=== PATIENT | female | born 1945 | race Caucasian/White ===

== ENCOUNTER 2022-05-28 04:27 | Observation (INO) ==
[2022-05-28] MEDS ORDERED: STAT IV STA (13:11)
[2022-05-28] MEDS ORDERED: ACETAMINOPHEN 325 MG TAB PO PRN (13:11)
[2022-05-28] MEDS ORDERED: ONDANSETRON INJ 2 MG/ML 2 ML VIAL IV PRN (13:11)
[2022-05-28] MEDS ORDERED: LACTATED RINGER'S 1,000 ML IV SCH (13:15)
[2022-05-28] MEDS ORDERED: SODIUM CHLORIDE 0.9% 250 ML IV PRN (13:20)
--- NOTE | 2022-05-28 13:24 | History & Physical Report ---
Date of Service May 28, 2022 Assessment & Plan (1) Acute blood loss anemia: Plan: Presents with hematemesis, melena, in the setting of taking aspirin and Eliquis Most likely upper GI bleed CT abdomen/pelvis at outside hospital done without contrast due to chronic kidn ey disease shows "cannot exclude low-grade diverticulitis"-doubtful this is a lower GI bleed Likely with underlying chronic anemia due to CKD stage IV, but unknown baseline hemoglobin Hemoglobin initially 9.2 on arrival and then down to 8.1 at outside hospital No further hematemesis or melena since 6:30 PM on 05/27, is hemodynamically stable here -Admit to telemetry -Type and crossmatch 2 units of blood but hold transfusion unless hemoglobin less than 8.0 and/or hemodynamically unstable-keeping in mind her EF of 10-15%, would transfuse cautiously and give IV Lasix -Trend serial CBC -Check iron studies and give IV Venofer if no blood transfusion needed -Consult GI-discussed case with GI who plans on EGD on 05/29 if cleared to do so from anesthesia standpoint -Continue Protonix and octreotide drips started at outside hospital as recommended by GI -Hold aspirin and Eliquis -Treat empirically with IV Zosyn in case of coexisting diverticulitis -Keep n.p.o. except ice chips and sips with meds (2) GI bleed: Plan: Upper GI bleed As above (3) HFrEF (heart failure with reduced ejection fraction): Plan: Patient has known chronic HFrEF with EF 10-15% Follows with Dr. Gongora in the [facility] area Hold Lasix for today in case of hypotension from blood loss, but certainly would give IV Lasix if transfusion necessary Restart p.o. Lasix 40 Mg once daily for tomorrow Not on beta-judah for unknown reasons Not on Entresto/JOSIAH inhibitor/ARB likely due to CKD stage IV Strict I's and O's, daily weights (4) Urinary urgency: Plan: Does have a history of bladder prolapse with pessary in place but feels her urinary urgency is more than usual Check UA She request Hernandez catheter be placed as she feels too weak to get up to go to the bathroom, understands increased risk of UTI (5) CKD (chronic kidney disease) stage 4, GFR 15-29 ml/min: Plan: CKD stage IV, unclear baseline but patient reports she follows with nephrology regularly in [place] but does not know the name Creatinine here is 2.1 and was similar at outside hospital on 05/27 -Avoid nephrotoxins -renally dose meds when appropriate -follow BMP (6) Folic acid deficiency: Plan: Continue home folate (7) History of CVA (cerebrovascular accident): Plan: Hold aspirin and Eliquis due to severe GI bleed Is in sinus rhythm currently (8) Paroxysmal atrial fibrillation: Plan: Patient unaware of this diagnosis but there is mention from outside records of what sounds like lone atrial fibrillation She is on Eliquis and she did not know the reason why Holding Eliquis for GI bleed as above Monitor on telemetry-is in sinus rhythm here (9) Major depressive disorder: Plan: Continue home sertraline No acute issues (10) Hyperlipidemia: Plan: Continue home Crestor (11) Presence of combination internal cardiac defibrillator (ICD) and pacemaker: Plan: For severe HFrEF (12) Mild cognitive impairment: Plan: Patient actually with quite good memory of her medications and health status, is oriented x3 Continue home donepezil Follows with neurology in [place] (13) Osteoporosis: Plan: No acute issues received Prolia q6 mo Plan: DVT prophylaxis-SCDs only due to GI bleed no chemoprophylaxis Disposition-admit to PCU DNR/DNI as discussed with patient with her son at the bedside History of Present Illness Chief Complaint: Vomiting blood, black stool Primary Care Provider: NO PCP This patient is a 76-year-old female with a history of chronic systolic CHF with EF 10-15%, CKD stage IV, lone atrial fibrillation on Eliquis, TIA, folic acid deficiency, hyperlipidemia, depression, who presents as a direct transfer from [facility] for GI bleed and acute blood loss anemia. On 05/27, she had 2 episodes of black tarry stools around lunchtime and had lower abdominal pressure sensation. Then after dinner around 6:30 PM, she had an episode of dark black emesis. She went to the outside hospital via EMS and was found to have a hemoglobin initially of 9.2 but then dropped to 8.1 through the night. She had a CT of the abdomen/pelvis without contrast which showed possible but cannot exclude low-grade diverticulitis. 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 She was started on Protonix and octreotide drips and given ceftriaxone and metronidazole x1 dose at the outside hospital. She was also given IV fluids overnight. Her lipase and amylase were mildly elevated there and her LFTs were normal, WBC count normal, COVID-19 test negative. She has never had an EGD or colonoscopy in her lifetime. She does describe frequent heartburn for which she takes Pepto-Bismol occasionally as well as peppermint lifesavers. When she arrived at [facility], almost 12 hours had gone by without any further hematemesis or melena. She was having 5/10 in severity lower abdominal pressure. Also feels like she is urinating more frequently than usual and has a history of recurrent UTI with a pessary in place. No fevers or chills. No lightheadedness or headache, no chest pain or shortness of breath, no joint pains or rashes. Allergies Allergy/AdvReac Type Severity Reaction Status Date / Time simvastatin Allergy Intermediate Rash Verified 05/28/22 14:09 sulfamethoxazole Allergy Intermediate Rash Verified 05/28/22 14:09 [From Bactrim] trimethoprim [From Bactrim] Allergy Intermediate Rash Verified 05/28/22 14:09 Home Medications Medication Instructions Recorded Confirmed Type apixaban 2.5 mg tablet (Eliquis) 2.5 mg PO BID 05/28/22 05/28/22 History aspirin 81 mg tablet 81 mg PO DAILY 05/28/22 05/28/22 History donepezil 10 mg tablet 10 mg PO DAILY 05/28/22 05/28/22 History folic acid 1 mg tablet 1 mg PO HS 05/28/22 05/28/22 History furosemide 40 mg tablet 40 mg PO DAILY 05/28/22 05/28/22 History rosuvastatin 10 mg tablet 10 mg PO HS 05/28/22 05/28/22 History sertraline 100 mg tablet 150 mg PO QAM 05/28/22 05/28/22 History vitamin E 100 unit tablet 100 unit PO HS 05/28/22 05/28/22 History Past Med/Surg History Medical History Bladder prolapse CKD (chronic kidney disease) stage 4, GFR 15-29 ml/min Folic acid deficiency HFrEF (heart failure with reduced ejection fraction) History of CVA (cerebrovascular accident) Hyperlipidemia Major depressive disorder Mild cognitive impairment Osteoporosis Paroxysmal atrial fibrillation Presence of combination internal cardiac defibrillator (ICD) and pacemaker Surgical History History of kyphoplasty Family History Other Family history non-contributory Social History (Updated 05/28/22 @ 15:03 by Nancy Flores MD) Smoking Status: Never smoker Second Hand Exposure: Yes; Do You Dip or Chew Tobacco: No; Tobacco Cessation Education Requested by Patient: No Hx Alcohol Use: No Hx Substance Use: No Preferred Language: [employer] Technical Assistant Required: No Beliefs That Will Affect Care: None marital status: / Current Living Situation: Family Current Living Situation Comment: Lives with her son Feels Safe at Home: Yes Safety Concerns: Feels Safe At This Time Assistive Devices: Cane and Walker Review of Systems Review of Systems: All systems reviewed & are unremarkable except as noted in HPI & below Physical Exam Constitutional: + thin; not lethargic Eyes: PERRL, conjunctivae normal, anicteric sclerae ENMT: external ear and nose normal, oropharynx normal Neck: trachea midline, no thyromegaly Respiratory: normal respiratory effort; no cough Auscultation: + crackles (Bibasilar); no rhonchi and no wheezes Cardiovascular: RRR, no murmur, no edema Chest (Breasts): Chest: normal inspection of chest Gastrointestinal (Abdomen): Inspection/Auscultation: abdomen normal to inspection and normal bowel sounds; abdomen not distended Pe rcussion/Palpation: + abdomen tender (mild +TTP in LLQ without guarding or rebound) and abdomen soft Musculoskeletal: Extremities: extremities normal to inspection; no cyanosis and no clubbing Skin: no rashes, warm and dry Neurologic: moves all extremities and awake; no focal motor deficits Psychiatric: A+Ox3, euthymic affect Lymphatic: no lymphedema Results & Data Results & Data ([facility]) Laboratory Results 05/28/22 05/28/22 05/28/22 Range/Units 14:37 14:25 14:15 WBC (4.8-10.8) K/uL RBC (4.2-5.4) M/uL Hgb (12.0-16.0) g/dL Hct (37-47) % MCV (80-100) fL MCH (25-34) pg MCHC (32-36) g/dL RDW Std Deviation (36.4-46.3) fL RDW Coeff of Marina (11.5-14.5) % Plt Count (130-400) K/uL MPV (7.4-10.4) fL Immature Gran % (Auto) % Neut % (Auto) % Lymph % (Auto) % [place] % (Auto) % Eos % (Auto) % Baso % (Auto) % Neut # (Auto) (1.4-6.5) K/uL Lymph # (Auto) (1.2-3.4) K/uL [place] # (Auto) (0.11-0.59) K/uL Eos # (Auto) (0-0.5) K/uL Baso # (Auto) (0-0.2) K/uL Immature Gran # (Auto) (0.00-0.02) K/uL Sodium (136-145) mmol/L Potassium (3.5-5.1) mmol/L Chloride (98-107) mmol/L Carbon Dioxide (21-32) mmol/L Anion Gap (3-11) BUN (6-23) mg/dl Creatinine (0.6-1.2) mg/dl Est Cr Clr Drug Dosing ml/min Est GFR ( Amer) ml/min Est GFR (Non-Af Amer) ml/min BUN/Creatinine Ratio (10-20) Glucose (70-99(Fasting)) mg/dl Calcium (8.5-10.1) mg/dl Ionized Calcium (1.12-1.32) mmol/L Magnesium (1.7-2.4) mg/dl Iron (35-150) mcg/dl TIBC (250-450) mcg/dl Unsaturated IBC (155-355) mcg/dl Transferrin % Sat (15-50) % Lipase Cancelled (11-82) U/L SARS-CoV-2, RNA, NAAT NEGATIVE (NEGATIVE) Blood Type Blood Type Recheck O Positive Antibody Screen Crossmatch 05/28/22 05/28/22 05/28/22 Range/Units 14:15 14:15 14:15 WBC 4.78 L (4.8-10.8) K/uL RBC 2.78 L (4.2-5.4) M/uL Hgb 9.0 L (12.0-16.0) g/dL Hct 27.4 L (37-47) % MCV 98.6 (80-100) fL MCH 32.4 (25-34) pg MCHC 32.8 (32-36) g/dL RDW Std Deviation 58.8 H (36.4-46.3) fL RDW Coeff of Marina 16.2 H (11.5-14.5) % Plt Count 148 (130-400) K/uL MPV 11.3 H (7.4-10.4) fL Immature Gran % (Auto) 0.2 % Neut % (Auto) 72.0 % Lymph % (Auto) 16.3 % [place] % (Auto) 8.4 % Eos % (Auto) 2.9 % Baso % (Auto) 0.2 % Neut # (Auto) 3.44 (1.4-6.5) K/uL Lymph # (Auto) 0.78 L (1.2-3.4) K/uL [place] # (Auto) 0.40 (0.11-0.59) K/uL Eos # (Auto) 0.14 (0-0.5) K/uL Baso # (Auto) 0.01 (0-0.2) K/uL Immature Gran # (Auto) 0.01 (0.00-0.02) K/uL Sodium 143 (136-145) mmol/L Potassium 4.0 (3.5-5.1) mmol/L Chloride 109 H (98-107) mmol/L Carbon Dioxide 25 (21-32) mmol/L Anion Gap 9 (3-11) BUN 107 H (6-23) mg/dl Creatinine 2.02 H (0.6-1.2) mg/dl Est Cr Clr Drug Dosing 14.8 ml/min Est GFR ( Amer) 26.7 ml/min Est GFR (Non-Af Amer) 23.0 ml/min BUN/Creatinine Ratio 53.0 H (10-20) Glucose 82 (70-99(Fasting)) mg/dl Calcium 8.9 (8.5-10.1) mg/dl Ionized Calcium (1.12-1.32) mmol/L Magnesium 2.6 H (1.7-2.4) mg/dl Iron 27 L (35-150) mcg/dl TIBC 343 (250-450) mcg/dl Unsaturated IBC 316 (155-355) mcg/dl Transferrin % Sat 8 L (15-50) % Lipase 38 (11-82) U/L SARS-CoV-2, RNA, NAAT (NEGATIVE) Blood Type O Positive Blood Type Recheck Antibody Screen NEGATIVE Crossmatch See Detail 05/28/22 Range/Units 14:15 WBC (4.8-10.8) K/uL RBC (4.2-5.4) M/uL Hgb (12.0-16.0) g/dL Hct (37-47) % MCV (80-100) fL MCH (25-34) pg MCHC (32-36) g/dL RDW Std Deviation (36.4-46.3) fL RDW Coeff of Marina (11.5-14.5) % Plt Count (130-400) K/uL MPV (7.4-10.4) fL Immature Gran % (Auto) % Neut % (Auto) % Lymph % (Auto) % [place] % (Auto) % Eos % (Auto) % Baso % (Auto) % Neut # (Auto) (1.4-6.5) K/uL Lymph # (Auto) (1.2-3.4) K/uL [place] # (Auto) (0.11-0.59) K/uL Eos # (Auto) (0-0.5) K/uL Baso # (Auto) (0-0.2) K/uL Immature Gran # (Auto) (0.00-0.02) K/uL Sodium (136-145) mmol/L Potassium (3.5-5.1) mmol/L Chloride (98-107) mmol/L Carbon Dioxide (21-32) mmol/L Anion Gap (3-11) BUN (6-23) mg/dl Creatinine (0.6-1.2) mg/dl Est Cr Clr Drug Dosing ml/min Est GFR ( Amer) ml/min Est GFR (Non-Af Amer) ml/min BUN/Creatinine Ratio (10-20) Glucose (70-99(Fasting)) mg/dl Calcium (8.5-10.1) mg/dl Ionized Calcium 1.17 (1.12-1.32) mmol/L Magnesium (1.7-2.4) mg/dl Iron (35-150) mcg/dl TIBC (250-450) mcg/dl Unsaturated IBC (155-355) mcg/dl Transferrin % Sat (15-50) % Lipase (11-82) U/L SARS-CoV-2, RNA, NAAT (NEGATIVE) Blood Type Blood Type Recheck Antibody Screen Crossmatch ECG Additional Comments: ECG reviewed from outside hospital shows paced rhythm Code Status & VTE Plan Code Status DNR/DNI VTE Prophylaxis Plan VTE Prophylaxis will be ordered: Yes PG Care Time/CCT Total # of Minutes Spent Total Time Spent with Patient: Total time spent is greater than 50% in coordination of care (as documented) at patient's floor/unit and/or counseling patient: Coding Level of Care Code 94934 Initial Inpt Care Lvl 3 Diagnoses HFrEF (heart failure with reduced ejection fraction) I50.20 Mild cognitive impairment G31.84 Osteoporosis M81.0 CKD (chronic kidney disease) stage 4, GFR 15-29 ml/min N18.4 Folic acid deficiency E53.8 History of CVA (cerebrovascular accident) Z86.73 Paroxysmal atrial fibrillation I48.0 Major depressive disorder F32.9 Hyperlipidemia E78.5 Presence of combination internal cardiac defibrillator (ICD) and pacemaker Z95.810 Urinary urgency R39.15 Acute blood loss anemia D62 GI bleed K92.2
[2022-05-28] MEDS ORDERED: Patient's HEIGHT &/or WEIGHT Needed SCH (14:15)
[2022-05-28] MEDS ORDERED: Patient's ALLERGY Info needs ENTERED SCH (14:15)
[2022-05-28] MEDS ORDERED: PIPERACILLIN/TAZOBACTAM 4.5 GM in DEXTROSE 5% 100 ML IV ONE (14:30)
[2022-05-28 15:05] LABS: Basophils # (auto) 0.01 K/uL (0-0.2); Basophils % (auto) 0.2 %; Eosinophils # (auto) 0.14 K/uL (0-0.5); Eosinophils % (auto) 2.9 %; Hematocrit (blood only) 27.4 % (37-47); Immature Granulocytes # (auto) 0.01 K/uL (0.00-0.02); Immature Granulocytes % (auto) 0.2 %; Lymphocytes # (auto) 0.78 K/uL (1.2-3.4); Lymphocytes % (auto) 16.3 %; Mean Corpuscular Hemoglobin 32.4 pg (25-34); Mean Corpuscular Hgb Conc 32.8 g/dL (32-36); Mean Corpuscular Volume 98.6 fL (80-100); Mean Platelet Volume 11.3 fL (7.4-10.4); Monocytes % (auto) 8.4 %; Neutrophils # (auto) 3.44 K/uL (1.4-6.5); Platelet Count 148 K/uL (130-400); RDW Coefficient of Variation 16.2 % (11.5-14.5); RDW Standard Deviation 58.8 fL (36.4-46.3); Red Blood Count 2.78 M/uL (4.2-5.4); White Blood Count 4.78 K/uL (4.8-10.8)
[2022-05-28 15:10] LABS: Calcium 8.9 mg/dl (8.5-10.1); Creatinine Clr Calc Pharmacy 14.8 ml/min; Est GFR (African American) 26.7 ml/min; Magnesium 2.6 mg/dl (1.7-2.4)
[2022-05-28] MEDS: OCTREOTIDE ACETATE 500 MCG in DEXTROSE 5% 100 ML IV SCH ×2 (15:16→23:30)
[2022-05-28] MEDS: PANTOprazole 40 MG in DEXTROSE 5% 100 ML IV SCH ×3 (15:16→23:30)
[2022-05-28] MEDS: PIPERACILLIN/TAZOBACTAM 3.375 GM in DEXTROSE 5% 100 ML IV SCH ×2 (15:53→23:47)
[2022-05-28] MEDS ORDERED: IRON SUCROSE 300 MG in SODIUM CHLORIDE 0.9% 250 ML IV ONE (16:00)
[2022-05-28 17:24] LABS: Appearance Urine Clear (Clear); Bilirubin Urine Negative (Negative); Blood Urine Negative (Negative); Color Urine Yellow; Glucose Urine UA Negative (Negative); Ketones Urine Negative (Negative); Leukocyte Esterase Urine Negative (Negative); Nitrite Urine Negative (Negative); Protein Urine Negative (Negative); Specific Gravity Urine 1.017 (1.000-1.030); Urobilinogen Urine Negative (Negative)
[2022-05-28 18:07] LABS: Hematocrit (blood only) 25.6 % (37-47); Hemoglobin 8.3 g/dL (12.0-16.0); Mean Corpuscular Hemoglobin 31.7 pg (25-34); Mean Corpuscular Hgb Conc 32.4 g/dL (32-36); Mean Corpuscular Volume 97.7 fL (80-100); Mean Platelet Volume 11.1 fL (7.4-10.4); Platelet Count 124 K/uL (130-400); RDW Coefficient of Variation 16.2 % (11.5-14.5); RDW Standard Deviation 57.9 fL (36.4-46.3); Red Blood Count 2.62 M/uL (4.2-5.4); White Blood Count 4.89 K/uL (4.8-10.8)
[2022-05-28] MEDS: MoRPHine SULFATE 2 MG/ML CARP IV PRN (18:36)
[2022-05-28] MEDS: FOLIC ACID 1 MG TAB PO SCH (20:30)
[2022-05-28] MEDS: ROSUVASTATIN CALCIUM 10 MG TAB PO SCH (20:30)
[2022-05-29] MEDS: PANTOprazole 40 MG in DEXTROSE 5% 100 ML IV SCH ×4 (05:41→19:48)
[2022-05-29 07:40] LABS: Basophils # (auto) 0.03 K/uL (0-0.2); Basophils % (auto) 0.6 %; Eosinophils # (auto) 0.35 K/uL (0-0.5); Eosinophils % (auto) 6.8 %; Hematocrit (blood only) 26.6 % (37-47); Hemoglobin 8.7 g/dL (12.0-16.0); Immature Granulocytes # (auto) 0.01 K/uL (0.00-0.02); Immature Granulocytes % (auto) 0.2 %; Lymphocytes # (auto) 0.71 K/uL (1.2-3.4); Lymphocytes % (auto) 13.9 %; Mean Corpuscular Hemoglobin 32.7 pg (25-34); Mean Corpuscular Hgb Conc 32.7 g/dL (32-36); Mean Platelet Volume 11.3 fL (7.4-10.4); Monocytes # (auto) 0.54 K/uL (0.11-0.59); Monocytes % (auto) 10.5 %; Neutrophils # (auto) 3.48 K/uL (1.4-6.5); Platelet Count 154 K/uL (130-400); RDW Coefficient of Variation 16.6 % (11.5-14.5); RDW Standard Deviation 59.9 fL (36.4-46.3); Red Blood Count 2.66 M/uL (4.2-5.4); White Blood Count 5.12 K/uL (4.8-10.8)
[2022-05-29 08:11] LABS: Albumin Globulin Ratio 1.4 (0.9-2); Albumin Level 3.4 gm/dl (3.4-5.0); BUN Creatinine Ratio 41.2 (10-20); Bilirubin,Total 0.5 mg/dl (0.2-1.0); Calcium 8.2 mg/dl (8.5-10.1); Creatinine Clr Calc Pharmacy 16.1 ml/min; Est GFR (African American) 26.4 ml/min; Est GFR (Non-African American) 22.8 ml/min; Globulin 2.5 gm/dl (2.5-4.0); Magnesium 2.6 mg/dl (1.7-2.4); Potassium 4.6 mmol/L (3.5-5.1); Total Protein 5.9 gm/dl (6.0-8.3)
[2022-05-29] MEDS: IRON SUCROSE 300 MG in SODIUM CHLORIDE 0.9% 250 ML IV SCH (08:27)
[2022-05-29] MEDS: SERTRALINE HCL 50 MG TABLET PO SCH (08:27)
[2022-05-29] MEDS: FUROSEMIDE 40 MG TAB PO SCH (08:27)
[2022-05-29] MEDS: DONEPEZIL HCL 10 MG TAB PO SCH (08:27)
--- NOTE | 2022-05-29 09:37 | Gastrointestinal Consultation ---
Date of Consultation May 29, 2022 Assessment & Plan (1) GI bleed: (2) Presence of combination internal cardiac defibrillator (ICD) and pacemaker: (3) CKD (chronic kidney disease) stage 4, GFR 15-29 ml/min: (4) HFrEF (heart failure with reduced ejection fraction): 76 y/o female with multiple co-morbidities including severe HFrEF w/ EF 10-15%, CKD, on ASA and Eliquis, admitted from OSH for report of dark tarry hematemesis and melena, anemia. Since arrival, no further GI output and VSS, HGB improved very slightly. OSH w/ ? diverticulitis. On exam soft, mild lower abd tenderness. She does report frequent heartburn; no on PPI but takes Pepto. Also takes occasional NSAIDS. Given her presentation, concern for UGIB (PUD, gastritis, esophagitis, AVM, etc). - Keep NPO - IVF - Continue IV PPI - Can continue Octreotide for now - Trend H&H, transfuse PRN - ABX as per primary team - Monitor and document GI output - Will discuss w/ attending suitability/timing for EGD if ok'd by anesthesia Thank you for allowing us to participate in the care of this patient. Please call with any acute changes, questions or concerns. Please see addendum below with additional recommendation from my supervising physician. Supervising Physician Co-Signing Physician Notes I saw and evaluated the patient. The patient is seen for question of upper gastrointestinal bleeding manifest by melena. This has not recurred since her admission 48 hours ago. Of note the patient is on anticoagulation due to severe congestive heart failure. She denies having difficulty with swallowing pain with swallowing fevers chills or sweats Physical examination Elderly/frail appearing female systolic ejection murmur heard Patient with a question of upper gastrointestinal bleeding, she does not appear to have recurrence or evidence of an active bleed at the present time. Thus I would recommend before endoscopy that we obtain a cardiology consultation and anesthesia consultation to determine if endoscopic evaluation can be performed at this Medical Center. If not then the patient may need referral to a tertiary Medical Center should persistent symptoms occur. History of Present Illness Reason for Consultation: GI bleed Requesting Physician: Dr Flores Attending Physician: Chris Sen MD History of Present Illness This is a 76 y/o female patient w/ PMHx chronic systolic CHF with EF 10-15%, pacemaker/ICD, CKD stage IV, lone atrial fibrillation on Eliquis, also on ASA, TIA, folic acid deficiency, HLD and others who was transferred from [facility] for GI bleed and acute blood loss anemia. On 05/27, she had 2 episodes of black tarry stools around lunchtime along with lower abdominal pressure sensation. Then after dinner around 6:30 PM, she had an episode of dark black, tarry emesis. At OSH HGB 9.2-> 8.1. Noncont CTAP showed possible low-grade diverticulitis. Due to no GI services at OSH she was transferred here. She's on PPI and Octreotide gtt along witwh ABX, VIF and started on IV iron. COVID neg. ASA and Eliquis held. She's had no GIB since arrival. HGB 8.7, BUN 84 w/ cr 2.04. VSS. Today she has some suprapubic discomfort., pressure; Hernandez in place draining pale yellow urine. She describes frequent heartburn; uses Pepto PRN; took the other day. Also takes Aleve PRN for sinus pain; took some the other day. No h/o GI bleed, never had EGD/colon. Denies ETOH tobacco use. Her son is with her at bedside and helps with history. Denies fevers or chills. No lightheadedness or headache, no chest pain or shortness of breath, upper abd pain, hematuria. Allergies Allergy/AdvReac Type Severity Reaction Status Date / Time simvastatin Allergy Intermediate Rash Verified 05/28/22 14:09 sulfamethoxazole Allergy Intermediate Rash Verified 05/28/22 14:09 [From Bactrim] trimethoprim [From Bactrim] Allergy Intermediate Rash Verified 05/28/22 14:09 Home Medications Medication Instructions Recorded Confirmed Type apixaban 2.5 mg tablet (Eliquis) 2.5 mg PO BID 05/28/22 05/28/22 History aspirin 81 mg tablet 81 mg PO DAILY 05/28/22 05/28/22 History donepezil 10 mg tablet 10 mg PO DAILY 05/28/22 05/28/22 History folic acid 1 mg tablet 1 mg PO HS 05/28/22 05/28/22 History furosemide 40 mg tablet 40 mg PO DAILY 05/28/22 05/28/22 History rosuvastatin 10 mg tablet 10 mg PO HS 05/28/22 05/28/22 History sertraline 100 mg tablet 150 mg PO QAM 05/28/22 05/28/22 History vitamin E 100 unit tablet 100 unit PO HS 05/28/22 05/28/22 History Patient History Medical History Bladder prolapse CKD (chronic kidney disease) stage 4, GFR 15-29 ml/min Folic acid deficiency HFrEF (heart failure with reduced ejection fraction) History of CVA (cerebrovascular accident) Hyperlipidemia Major depressive disorder Mild cognitive impairment Osteoporosis Paroxysmal atrial fibrillation Presence of combination internal cardiac defibrillator (ICD) and pacemaker Surgical History History of kyphoplasty Family History Other Family history non-contributory Social History (Updated 05/28/22 @ 15:03 by Nancy Flores MD) Smoking Status: Never smoker Second Hand Exposure: Yes; Do You Dip or Chew Tobacco: No; Tobacco Cessation Education Requested by Patient: No Hx Alcohol Use: No Hx Substance Use: No Preferred Language: [place] Island[place] Board Winder Required: No Beliefs That Will Affect Care: None marital status: / Current Living Situation: Family Current Living Situation Comment: Lives with her son Feels Safe at Home: Yes Safety Concerns: Feels Safe At This Time Assistive Devices: Cane and Walker Review of Systems Review of Systems: All systems reviewed & are unremarkable except as noted in HPI & below Physical Exam Constitutional: WD/WN, vitals as above (chronically ill) Eyes: PERRL, conjunctivae normal, anicteric sclerae ENMT: external ear and nose normal, oropharynx normal Respiratory: normal respiratory effort, lungs clear to auscultation Cardiovascular: RRR, no murmur, no edema Gastrointestinal (Abdomen): Inspection/Auscultation: abdomen normal to inspection and normal bowel sounds; abdomen not distended Percussion/Palpation: abdomen soft; no guarding tender to lower abd; no rebound Skin: no rashes, warm and dry Psychiatric: A+Ox3, euthymic affect Results & Data ([facility]) Vital Signs (Past 12 Hours) Vital Signs Temp Pulse Pulse Resp BP Pulse Ox 05/29/22 07:08 36.8 C 72 16 123/58 L 97 05/29/22 03:00 36.8 C 85 16 106/60 91 05/28/22 23:32 36.8 C 76 16 133/69 92 05/28/22 22:25 75 Laboratory Results 05/29/22 05/29/22 05/28/22 Range/Units 06:54 06:54 17:53 WBC 5.12 4.89 (4.8-10.8) K/uL RBC 2.66 L 2.62 L (4.2-5.4) M/uL Hgb 8.7 L 8.3 L (12.0-16.0) g/dL Hct 26.6 L 25.6 L (37-47) % MCV 100.0 97.7 (80-100) fL MCH 32.7 31.7 (25-34) pg MCHC 32.7 32.4 (32-36) g/dL RDW Std Deviation 59.9 H 57.9 H (36.4-46.3) fL RDW Coeff of [place] 16.6 H 16.2 H (11.5-14.5) % Plt Count 154 124 L (130-400) K/uL MPV 11.3 H 11.1 H (7.4-10.4) fL Immature Gran % (Auto) 0.2 % Neut % (Auto) 68.0 % Lymph % (Auto) 13.9 % Jay % (Auto) 10.5 % Eos % (Auto) 6.8 % Baso % (Auto) 0.6 % Neut # (Auto) 3.48 (1.4-6.5) K/uL Lymph # (Auto) 0.71 L (1.2-3.4) K/uL Jay # (Auto) 0.54 (0.11-0.59) K/uL Eos # (Auto) 0.35 (0-0.5) K/uL Baso # (Auto) 0.03 (0-0.2) K/uL Immature Gran # (Auto) 0.01 (0.00-0.02) K/uL Sodium 141 (136-145) mmol/L Potassium 4.6 (3.5-5.1) mmol/L Chloride 109 H (98-107) mmol/L Carbon Dioxide 24 (21-32) mmol/L Anion Gap 8 (3-11) BUN 84 H D (6-23) mg/dl Creatinine 2.04 H (0.6-1.2) mg/dl Est Cr Clr Drug Dosing 16.1 ml/min Est GFR ( Amer) 26.4 ml/min Est GFR (Non-Af Amer) 22.8 ml/min BUN/Creatinine Ratio 41.2 H (10-20) Glucose 102 H (70-99(Fasting)) mg/dl Calcium 8.2 L (8.5-10.1) mg/dl Ionized Calcium (1.12-1.32) mmol/L Magnesium 2.6 H (1.7-2.4) mg/dl Iron (35-150) mcg/dl TIBC (250-450) mcg/dl Unsaturated IBC (155-355) mcg/dl Transferrin % Sat (15-50) % Total Bilirubin 0.5 (0.2-1.0) mg/dl AST 18 (13-39) U/L ALT 11 (7-52) U/L Alkaline Phosphatase 33 L (34-104) U/L Total Protein 5.9 L (6.0-8.3) gm/dl Albumin 3.4 (3.4-5.0) gm/dl Globulin 2.5 (2.5-4.0) gm/dl Albumin/Globulin Ratio 1.4 (0.9-2) Lipase (11-82) U/L Urine Color Urine Appearance (Clear) Urine pH (4.5-7.5) Ur Specific [place] (1.000-1.030) Urine Protein (Negative) Urine Glucose (UA) (Negative) Urine Ketones (Negative) Urine Blood (Negative) Urine Nitrite (Negative) Urine Bilirubin (Negative) Urine Urobilinogen (Negative) Ur Leukocyte Esterase (Negative) SARS-CoV-2, RNA, NAAT (NEGATIVE) Blood Type Blood Type Recheck Antibody Screen Crossmatch 05/28/22 05/28/22 05/28/22 Range/Units 17:06 14:37 14:25 WBC (4.8-10.8) K/uL RBC (4.2-5.4) M/uL Hgb (12.0-16.0) g/dL Hct (37-47) % MCV (80-100) fL MCH (25-34) pg MCHC (32-36) g/dL RDW Std Deviation (36.4-46.3) fL RDW Coeff of Marina (11.5-14.5) % Plt Count (130-400) K/uL MPV (7.4-10.4) fL Immature Gran % (Auto) % Neut % (Auto) % Lymph % (Auto) % Jay % (Auto) % Eos % (Auto) % Baso % (Auto) % Neut # (Auto) (1.4-6.5) K/uL Lymph # (Auto) (1.2-3.4) K/uL Jay # (Auto) (0.11-0.59) K/uL Eos # (Auto) (0-0.5) K/uL Baso # (Auto) (0-0.2) K/uL Immature Gran # (Auto) (0.00-0.02) K/uL Sodium (136-145) mmol/L Potassium (3.5-5.1) mmol/L Chloride (98-107) mmol/L Carbon Dioxide (21-32) mmol/L Anion Gap (3-11) BUN (6-23) mg/dl Creatinine (0.6-1.2) mg/dl Est Cr Clr Drug Dosing ml/min Est GFR ( Amer) ml/min Est GFR (Non-Af Amer) ml/min BUN/Creatinine Ratio (10-20) Glucose (70-99(Fasting)) mg/dl Calcium (8.5-10.1) mg/dl Ionized Calcium (1.12-1.32) mmol/L Magnesium (1.7-2.4) mg/dl Iron (35-150) mcg/dl TIBC (250-450) mcg/dl Unsaturated IBC (155-355) mcg/dl Transferrin % Sat (15-50) % Total Bilirubin (0.2-1.0) mg/dl AST (13-39) U/L ALT (7-52) U/L Alkaline Phosphatase (34-104) U/L Total Protein (6.0-8.3) gm/dl Albumin (3.4-5.0) gm/dl Globulin (2.5-4.0) gm/dl Albumin/Globulin Ratio (0.9-2) Lipase (11-82) U/L Urine Color Yellow Urine Appearance Clear (Clear) Urine pH 5.0 (4.5-7.5) Ur Specific [place] 1.017 (1.000-1.030) Urine Protein Negative (Negative) Urine Glucose (UA) Negative (Negative) Urine Ketones Negative (Negative) Urine Blood Negative (Negative) Urine Nitrite Negative (Negative) Urine Bilirubin Negative (Negative) Urine Urobilinogen Negative (Negative) Ur Leukocyte Esterase Negative (Negative) SARS-CoV-2, RNA, NAAT NEGATIVE (NEGATIVE) Blood Type Blood Type Recheck O Positive Antibody Screen Crossmatch 05/28/22 05/28/22 05/28/22 Range/Units 14:15 14:15 14:15 WBC (4.8-10.8) K/uL RBC (4.2-5.4) M/uL Hgb (12.0-16.0) g/dL Hct (37-47) % MCV (80-100) fL MCH (25-34) pg MCHC (32-36) g/dL RDW Std Deviation (36.4-46.3) fL RDW Coeff of Marina (11.5-14.5) % Plt Count (130-400) K/uL MPV (7.4-10.4) fL Immature Gran % (Auto) % Neut % (Auto) % Lymph % (Auto) % Jay % (Auto) % Eos % (Auto) % Baso % (Auto) % Neut # (Auto) (1.4-6.5) K/uL Lymph # (Auto) (1.2-3.4) K/uL Jay # (Auto) (0.11-0.59) K/uL Eos # (Auto) (0-0.5) K/uL Baso # (Auto) (0-0.2) K/uL Immature Gran # (Auto) (0.00-0.02) K/uL Sodium 143 (136-145) mmol/L Potassium 4.0 (3.5-5.1) mmol/L Chloride 109 H (98-107) mmol/L Carbon Dioxide 25 (21-32) mmol/L Anion Gap 9 (3-11) BUN 107 H (6-23) mg/dl Creatinine 2.02 H (0.6-1.2) mg/dl Est Cr Clr Drug Dosing 14.8 ml/min Est GFR ( Amer) 26.7 ml/min Est GFR (Non-Af Amer) 23.0 ml/min BUN/Creatinine Ratio 53.0 H (10-20) Glucose 82 (70-99(Fasting)) mg/dl Calcium 8.9 (8.5-10.1) mg/dl Ionized Calcium (1.12-1.32) mmol/L Magnesium 2.6 H (1.7-2.4) mg/dl Iron 27 L (35-150) mcg/dl TIBC 343 (250-450) mcg/dl Unsaturated IBC 316 (155-355) mcg/dl Transferrin % Sat 8 L (15-50) % Total Bilirubin (0.2-1.0) mg/dl AST (13-39) U/L ALT (7-52) U/L Alkaline Phosphatase (34-104) U/L Total Protein (6.0-8.3) gm/dl Albumin (3.4-5.0) gm/dl Globulin (2.5-4.0) gm/dl Albumin/Globulin Ratio (0.9-2) Lipase Cancelled 38 (11-82) U/L Urine Color Urine Appearance (Clear) Urine pH (4.5-7.5) Ur Specific [place] (1.000-1.030) Urine Protein (Negative) Urine Glucose (UA) (Negative) Urine Ketones (Negative) Urine Blood (Negative) Urine Nitrite (Negative) Urine Bilirubin (Negative) Urine Urobilinogen (Negative) Ur Leukocyte Esterase (Negative) SARS-CoV-2, RNA, NAAT (NEGATIVE) Blood Type O Positive Blood Type Recheck Antibody Screen NEGATIVE Crossmatch See Detail 05/28/22 05/28/22 Range/Units 14:15 14:15 WBC 4.78 L (4.8-10.8) K/uL RBC 2.78 L (4.2-5.4) M/uL Hgb 9.0 L (12.0-16.0) g/dL Hct 27.4 L (37-47) % MCV 98.6 (80-100) fL MCH 32.4 (25-34) pg MCHC 32.8 (32-36) g/dL RDW Std Deviation 58.8 H (36.4-46.3) fL RDW Coeff of Marina 16.2 H (11.5-14.5) % Plt Count 148 (130-400) K/uL MPV 11.3 H (7.4-10.4) fL Immature Gran % (Auto) 0.2 % Neut % (Auto) 72.0 % Lymph % (Auto) 16.3 % Jay % (Auto) 8.4 % Eos % (Auto) 2.9 % Baso % (Auto) 0.2 % Neut # (Auto) 3.44 (1.4-6.5) K/uL Lymph # (Auto) 0.78 L (1.2-3.4) K/uL Jay # (Auto) 0.40 (0.11-0.59) K/uL Eos # (Auto) 0.14 (0-0.5) K/uL Baso # (Auto) 0.01 (0-0.2) K/uL Immature Gran # (Auto) 0.01 (0.00-0.02) K/uL Sodium (136-145) mmol/L Potassium (3.5-5.1) mmol/L Chloride (98-107) mmol/L Carbon Dioxide (21-32) mmol/L Anion Gap (3-11) BUN (6-23) mg/dl Creatinine (0.6-1.2) mg/dl Est Cr Clr Drug Dosing ml/min Est GFR ( Amer) ml/min Est GFR (Non-Af Amer) ml/min BUN/Creatinine Ratio (10-20) Glucose (70-99(Fasting)) mg/dl Calcium (8.5-10.1) mg/dl Ionized Calcium 1.17 (1.12-1.32) mmol/L Magnesium (1.7-2.4) mg/dl Iron (35-150) mcg/dl TIBC (250-450) mcg/dl Unsaturated IBC (155-355) mcg/dl Transferrin % Sat (15-50) % Total Bilirubin (0.2-1.0) mg/dl AST (13-39) U/L ALT (7-52) U/L Alkaline Phosphatase (34-104) U/L Total Protein (6.0-8.3) gm/dl Albumin (3.4-5.0) gm/dl Globulin (2.5-4.0) gm/dl Albumin/Globulin Ratio (0.9-2) Lipase (11-82) U/L Urine Color Urine Appearance (Clear) Urine pH (4.5-7.5) Ur Specific [place] (1.000-1.030) Urine Protein (Negative) Urine Glucose (UA) (Negative) Urine Ketones (Negative) Urine Blood (Negative) Urine Nitrite (Negative) Urine Bilirubin (Negative) Urine Urobilinogen (Negative) Ur Leukocyte Esterase (Negative) SARS-CoV-2, RNA, NAAT (NEGATIVE) Blood Type Blood Type Recheck Antibody Screen Crossmatch
[2022-05-29] MEDS: OCTREOTIDE ACETATE 500 MCG in DEXTROSE 5% 100 ML IV SCH ×2 (10:08→19:47)
[2022-05-29] MEDS: MoRPHine SULFATE 2 MG/ML CARP IV PRN ×2 (11:39→21:42)
[2022-05-29] MEDS: PIPERACILLIN/TAZOBACTAM 3.375 GM in DEXTROSE 5% 100 ML IV SCH (11:39)
--- NOTE | 2022-05-29 13:37 | Hospitalist Progress Note ---
Date of Service May 29, 2022 Assessment & Plan (1) GI bleed: Plan: Anemia Presents with hematemesis, melena, in the setting of taking aspirin and Eliquis Most likely upper GI bleed [facility] Hgb on admission 9.2, then dropped to 8.3. Hgb today 8.7 ( unknown baseline hgb ) No further episode of hematemesis or bloody bowel movement Continue octreotide drip and PPI drip Gastro on board Plan for EGD but asking for cardiology and anesthesiology evaluation to determine if endoscopic evaluation can be performed at this Medical Center or if need to perform at tertiary Medical Center Continue to hold Aspirin and Eliquis Type and crossed done and pt had 2 units PRBC on hold Continue IV iron supplement Plan for EGD tomorrow NPO after midnight Continue monitor CBC Low grade diverticulitis Continue IV Zosyn for now Clinically stable HFrEF (heart failure with reduced ejection fraction): Patient has known chronic HFrEF with EF 10-15% Presence of combination internal cardiac defibrillator (ICD) and pacemaker Follows with Dr. Gongora in the [facility] Cardiology consulted Continue Lasix 40mg daily Continue monitor I/O Continue monitor BMP Urinary urgency UA negative for UTI She requested Randhawa catheter be placed as she feels too weak to get up to go to the bathroom, understands increased risk of UTI Plan to remove randhawa catheter in the next day CKD (chronic kidney disease) stage 4, GFR 15-29 ml/min: Creatinine 2.04 today , unknown baseline Continue to avoid nephrotoxic agents Continue monitor BMP Folic acid deficiency: Continue home folate History of CVA (cerebrovascular accident): Contineu to hold aspirin and Eliquis due to severe GI bleed No focal neuro deficit LV Mural Thrombus Pt has no history of Afib Continue to hold eliquis due to GI bleed Cardio recommended to repeat echocardiogram with contrast to reassess for thrombus If no mural thrombus on echocardiogram, may be able to proceed without re-star ting Eliquis as per cardio Major depressive disorder: Continue home sertraline stable Hyperlipidemia Continue home Crestor Mild cognitive impairment: Continue home donepezil Follows with neurology in [place] Osteoporosis: No acute issues received Prolia q6 mo DVT prophylaxis-SCDs due to GI bleed Disposition Continue monitor in PCU DNR/DNI Full code Admission and Anticipated Discharge Date Admission Date: May 28, 2022 Subjective Pt was seen and examined for follow up of GI bleed and hematemesis Lying in bed with no acute distress with son at bedside Son said that yesterday pt had a large episodes of hematemesis and 2 episodes of blood stool Son said that pt is on Eliquis and Aspirin and she did not take any other NSAID Pt said that she feels weak No further episode of vomiting and bloody stool since admitting Gastro asked for cardio and anesthesiology evaluation before taking for EGD Denies any chest pain, palpitation, dizziness and SOB Review of Systems Review of Systems: All systems reviewed & are unremarkable except as noted in Subjective Physical Exam Physical Exam: General- No acute distress Head- atraumatic Eyes- PERRL, EOMI, ENT- oropharynx clear Neck- supple, no JVD Lungs- clear to auscultation Heart- regular rhythm; no murmur Abdomen- normal bowel sounds, soft, nontender Extremities- no calf tenderness Neuro- alert, oriented x 3; PERRL, EOMI; no facial palsy; no dysarthria Skin- warm & dry Results & Data Results & Data ([facility]) Vital Signs (Past 12 Hours) Vital Signs Temp Pulse Resp BP Pulse Ox 05/29/22 11:42 36.6 C 81 18 116/56 L 94 05/29/22 07:08 36.8 C 72 16 123/58 L 97 05/29/22 03:00 36.8 C 85 16 106/60 91
--- NOTE | 2022-05-29 14:00 | Cardiology Consultation ---
Date of Consultation May 29, 2022 Assessment & Plan (1) GI bleed: (2) Preoperative cardiovascular examination: (3) HFrEF (heart failure with reduced ejection fraction): (4) Presence of combination internal cardiac defibrillator (ICD) and pacemaker: (5) CKD (chronic kidney disease) stage 4, GFR 15-29 ml/min: Patient with known stage IV chronic kidney disease, baseline creatinine in the range of 1.8-2.3 mg/dL, baseline GFR 20-27 mL/min/m. Hemoglobin currently relatively stable at 8.7. Patient well compensated from a cardiac perspective, with no evidence of volume overload on exam. I do question why she is on Eliquis. Per review of outpatient records medication list include aspirin 81 mg daily, as well as Eliquis 2.5 mg twice daily. She has a chart history of stroke. There is a chart history of paroxysmal atrial fibrillation noted in her transfer note from the outside em ergency room yesterday, however the patient does not mention diagnosis of atrial fibrillation and does not believe that she has had this in the past. Per her outpatient [facility] chart, there is no documentation of atrial fibrillation. Per available outside cardiology notes, no definite documentation of atrial fibrillation, but I have reached out to her primary web producer to see if they do in fact have any records of atrial fibrillation or a definite indication for why she is on Eliquis, as the patient does not recall history of venous thromboembolic event. Her most recent echocardiogram does not mention evidence of the left ventricular mural thrombus. For now, we will continue to hold aspirin and Eliquis. If endoscopy felt to be clinically indicated, I think she is stable to proceed with a reasonable degree of risk with findings of stable compensated congestive heart failure. History of Present Illness Attending Physician: Chris Sen MD History of Present Illness Yvonne Hardin is a 76-year-old female seen in cardiology consultation per the request of Dr Sen for cardiac evaluation prior to consideration of EGD. Patient seen and examined in room 210. Her son, Eliseo, accompanied her at the bedside. Her primary care physician is Dr. Sunday Mckeon of [facility]. Yvonne initially presented to [facility] with complaint of two episodes of of black tarry stools on 05/27/22. Her Hgb there dropped from 9.2 to 8.1 and she was transfered to [facility] for further evaluation. She has been seen in consultation by gastroenterology and an EGD is being considered , however, cardiology evaluation requested for preprocedure optimazation. Her primary web producer is Dr Gongora, in [place] and has also followed with [facility] cardiology in the past. The patient has a history of chronic systolic heart failure, severe left ventricular systolic function ejection fraction in the range of 10 - 15% due to a nonischemic cardiomyopathy, left bundle branch block, mild nonobstructive coronary heart disease noted at time of cardiac catheterization in 2013, and she is status post implantation of biventricular pacemaker AICD in 2014. Report of most recent available echocardiogram performed within the [facility] system 10/02/21, describes severe left ventricular systolic dysfunction, LVEF 10-15%, with moderate left atrial dilatation, severe left ventricular hypokinesis, elevated pulmonary artery systolic pressure 55 mmHg with moderate tricuspid regurgitation, moderate to severe mitral regurgitation. Patient describes a recent stable cardiac signs and symptoms with no change in her activity tolerance. Per outpatient records she is known to have NYHA functional class II symptoms ate baseline. Allergies Allergy/AdvReac Type Severity Reaction Status Date / Time simvastatin Allergy Intermediate Rash Verified 05/28/22 14:09 sulfamethoxazole Allergy Intermediate Rash Verified 05/28/22 14:09 [From Bactrim] trimethoprim [From Bactrim] Allergy Intermediate Rash Verified 05/28/22 14:09 Home Medications Medication Instructions Recorded Confirmed Type apixaban 2.5 mg tablet (Eliquis) 2.5 mg PO BID 05/28/22 05/28/22 History aspirin 81 mg tablet 81 mg PO DAILY 05/28/22 05/28/22 History donepezil 10 mg tablet 10 mg PO DAILY 05/28/22 05/28/22 History folic acid 1 mg tablet 1 mg PO HS 05/28/22 05/28/22 History furosemide 40 mg tablet 40 mg PO DAILY 05/28/22 05/28/22 History rosuvastatin 10 mg tablet 10 mg PO HS 05/28/22 05/28/22 History sertraline 100 mg tablet 150 mg PO QAM 05/28/22 05/28/22 History vitamin E 100 unit tablet 100 unit PO HS 05/28/22 05/28/22 History Patient History Medical History Bladder prolapse CKD (chronic kidney disease) stage 4, GFR 15-29 ml/min Folic acid deficiency HFrEF (heart failure with reduced ejection fraction) History of CVA (cerebrovascular accident) Hyperlipidemia Major depressive disorder Mild cognitive impairment Osteoporosis Paroxysmal atrial fibrillation Presence of combination internal cardiac defibrillator (ICD) and pacemaker Surgical History History of kyphoplasty Family History Other Family history non-contributory Social History Smoking Status: Never smoker Second Hand Exposure: Yes; Do You Dip or Chew Tobacco: No; Tobacco Cessation Education Requested by Patient: No Hx Alcohol Use: No Hx Substance Use: No Preferred Language: Burmese Experience Design Director Required: No Beliefs That Will Affect Care: None marital status: / Current Living Situation: Family Current Living Situation Comment: Lives with her son Feels Safe at Home: Yes Safety Concerns: Feels Safe At This Time Assistive Devices: Cane and Walker Review of Systems Review of Systems: All systems reviewed & are unremarkable except as noted in HPI & below Physical Exam Physical Exam: Temp Pulse Resp BP Pulse Ox 36.6 C 81 18 116/56 L 94 05/29/22 11:42 05/29/22 11:42 05/29/22 11:42 05/29/22 11:42 05/29/22 11:42 Constitutional: WD/WN, vitals as above Respiratory: normal respiratory effort, lungs clear to auscultation Cardiovascular: Rate/Rhythm: regular rate Heart Sounds: + murmur (2/6 SM) Extremities: no edema Chest (Breasts): Additional Comments: left infraclavicular device pocket , clean , dry , intact Gastrointestinal (Abdomen): normal bowel sounds, soft, nontender, no hepatosplenomegaly Neurologic: PERRL, EOMI, accommodation nl, no face palsy, no dysarthria Results & Data ([facility]) Vital Signs (Past 12 Hours) Vital Signs Temp Pulse Resp BP Pulse Ox 05/29/22 11:42 36.6 C 81 18 116/56 L 94 05/29/22 07:08 36.8 C 72 16 123/58 L 97 05/29/22 03:00 36.8 C 85 16 106/60 91 Laboratory Results Cardiac Enzymes 05/29/22 Range/Units 06:54 AST 18 (13-39) U/L CBC 05/28/22 05/28/22 05/29/22 Range/Units 14:15 17:53 06:54 WBC 4.78 L 4.89 5.12 (4.8-10.8) K/uL RBC 2.78 L 2.62 L 2.66 L (4.2-5.4) M/uL Hgb 9.0 L 8.3 L 8.7 L (12.0-16.0) g/dL Hct 27.4 L 25.6 L 26.6 L (37-47) % Plt Count 148 124 L 154 (130-400) K/uL Neut # (Auto) 3.44 3.48 (1.4-6.5) K/uL Lymph # (Auto) 0.78 L 0.71 L (1.2-3.4) K/uL [place] # (Auto) 0.40 0.54 (0.11-0.59) K/uL Eos # (Auto) 0.14 0.35 (0-0.5) K/uL Baso # (Auto) 0.01 0.03 (0-0.2) K/uL Comprehensive Metabolic Panel 05/28/22 05/29/22 Range/Units 14:15 06:54 Sodium 143 141 (136-145) mmol/L Potassium 4.0 4.6 (3.5-5.1) mmol/L Chloride 109 H 109 H (98-107) mmol/L Carbon Dioxide 25 24 (21-32) mmol/L BUN 107 H 84 H D (6-23) mg/dl Creatinine 2.02 H 2.04 H (0.6-1.2) mg/dl Glucose 82 102 H (70-99(Fasting)) mg/dl Calcium 8.9 8.2 L (8.5-10.1) mg/dl AST 18 (13-39) U/L ALT 11 (7-52) U/L Alkaline Phosphatase 33 L (34-104) U/L Total Protein 5.9 L (6.0-8.3) gm/dl Albumin 3.4 (3.4-5.0) gm/dl Intake and Output 05/28/22 05/29/22 05/29/22 22:59 06:59 14:59 Intake Total 586.333 / 884.490 298.157 / 884.490 465.5 / 465.5 Output Total 200 / 800 600 / 800 Balance 386.333 / 84.490 -301.843 / 84.490 465.5 / 465.5 Intake: IV 586.333 / 884.490 298.157 / 884.490 465.5 / 465.5 Iron Sucrose 300 mg In Sodium 265 / 265 265 / 265 Chloride 0.9% 250 ml @ 176.667 mls/hr IV DAILY [facility] Rx#: [id number] Octreotide Acetate 500 mcg In 83.157 / 83.157 100.5 / 100.5 Dextrose 5% 100 ml @ 50 MCG/HR 10.05 mls/hr IV .Q10H [facility] Rx#: [id number] PANTOprazole 40 mg In Dextrose 86.333 / 186.333 100 / 186.333 100 / 100 5% 100 ml @ 8 MG/HR 20 mls/hr IV Q5H [facility] Rx#:[id number] Piperacillin/Tazobactam 3.375 115 / 230 115 / 230 gm In Dextrose 5% 100 ml @ 28. 75 mls/hr IV Q12H [facility] Rx#: [id number] Piperacillin/Tazobactam 4.5 gm 120 / 120 In Dextrose 5% 100 ml @ 240 mls /hr IV NOW ONE Rx#:[id number] Output: Urine Amount (Catheter) 200 / 800 600 / 800 Hernandez/Indwelling 200 / 800 600 / 800 Other: Weight 51.1 kg Weight Measurement Method Built in [facility] Diagnostic Findings Outside EKG 05/27, revels sinus rhythm with AV sequential paced rhythm.
[2022-05-29] MEDS: ROSUVASTATIN CALCIUM 10 MG TAB PO SCH (19:48)
[2022-05-29] MEDS: FOLIC ACID 1 MG TAB PO SCH (19:48)
[2022-05-30] MEDS: PIPERACILLIN/TAZOBACTAM 3.375 GM in DEXTROSE 5% 100 ML IV SCH ×2 (00:40→19:29)
[2022-05-30] MEDS: PANTOprazole 40 MG in DEXTROSE 5% 100 ML IV SCH ×3 (00:40→11:31)
[2022-05-30] MEDS: OCTREOTIDE ACETATE 500 MCG in DEXTROSE 5% 100 ML IV SCH ×3 (05:54→21:00)
--- NOTE | 2022-05-30 09:27 | History & Physical Bridge Note ---
Date of Service May 30, 2022 History & Physical Bridge Note I have examined the patient, reviewed the History & Physical and in the interval since the performance of the History & Physical I have noted the following changes of clinical significance: no changes noted. The patient is markedly ill as result of her longstanding cardiac disease. Upper endoscopy is certainly at increased risk of perioperative complications. This has been discussed with the patient. The risks include bleeding problems heart problems, perforation and need for follow-up studies
--- NOTE | 2022-05-30 09:32 | Anesthesiology Consultation ---
Date of Service May 30, 2022 Assessment & Plan Chart Review Chart Review: Acceptable Risk for Surgery Consults Requested none ASA ASA4 Proposed Anesthesia Anesthesia Type: MAC Risk / Benefits Reviewed With: PT / POA / Parent / Guardian, Accepts Plan and Informed Consent Obtained Additional Comments: d/w GI, high risk vs need for w/u, short procedure, will proceed w/o invasive monitoring History Surgery Operation Date: 05/29/22 17:30 Proposed Procedures p Esophagogastroduodenoscopy Dr Carlton Vincent, Operation Date: 05/30/22 16:00 Proposed Procedures p Esophagogastroduodenoscopy Dr Carlton Vincent, DO Height/Weight Height: 4 ft 10 in Weight: 48.1 kg Allergies Allergy/AdvReac Type Severity Reaction Status Date / Time simvastatin Allergy Intermediate Rash Verified 05/28/22 14:09 sulfamethoxazole Allergy Intermediate Rash Verified 05/28/22 14:09 [From Bactrim] trimethoprim [From Bactrim] Allergy Intermediate Rash Verified 05/28/22 14:09 Medications Home Medications Medication Instructions Recorded Confirmed Last Taken apixaban 2.5 mg tablet (Eliquis) 2.5 mg PO BID 05/28/22 05/28/22 05/27/22 18:00 aspirin 81 mg tablet 81 mg PO DAILY 05/28/22 05/28/22 05/27/22 donepezil 10 mg tablet 10 mg PO DAILY 05/28/22 05/28/22 05/27/22 folic acid 1 mg tablet 1 mg PO 05/28/22 05/28/22 05/27/22 furosemide 40 mg tablet 40 mg PO DAILY 05/28/22 05/28/22 05/27/22 rosuvastatin 10 mg tablet 10 mg PO 05/28/22 05/28/22 05/27/22 sertraline 100 mg tablet 150 mg PO QAM 05/28/22 05/28/22 05/27/22 vitamin E 100 unit tablet 100 unit PO 05/28/22 05/28/22 05/27/22 Active Medications Generic Name Dose Route Start Last Admin Trade Name Freq PRN Reason Stop Dose Admin Donepezil HCl 10 mg 05/29/22 09:00 05/29/22 08:27 Donepezil Hcl 10 Mg Tab PO 06/28/22 08:59 10 mg DAILY GALEN Administration Folic Acid 1 mg 05/28/22 21:00 05/29/22 19:48 Folic Acid 1 Mg Tab PO 06/27/22 20:59 1 mg HS GALEN Administration Furosemide 40 mg 05/29/22 09:00 05/29/22 08:27 Furosemide 40 Mg Tab PO 06/28/22 08:59 40 mg DAILY GALEN Administration Pantoprazole Sodium 40 mg/ 100 mls @ 20 mls/hr 05/28/22 13:30 05/30/22 05:54 Dextrose IV 06/27/22 13:29 8 mg/hr Q5H GALEN 20 mls/hr Administration 8 MG/HR Octreotide Acetate 500 mcg/ 100.5 mls @ 10.05 mls/hr 05/28/22 13:30 05/30/22 05:54 Dextrose IV 06/27/22 13:29 50 mcg/hr .Q10H GALEN 10.1 mls/hr Administration 50 MCG/HR Piperacillin Sod/Tazobactam 115 mls @ 28.75 mls/hr 05/29/22 00:00 05/30/22 04:41 Sod 3.375 gm/ Dextrose IV 06/07/22 14:59 Infused Q12H GALEN Infusion Protocol Iron Sucrose 300 mg/ Sodium 265 mls @ 176.667 mls/hr 05/29/22 09:00 05/29/22 10:09 Chloride IV 05/30/22 10:29 Infused DAILY GALEN Infusion Morphine Sulfate 2 mg 05/28/22 14:10 05/29/22 21:42 Morphine Sulfate 2 Mg/Ml Carp IV 06/11/22 14:09 2 mg Q4H PRN Administration moderate-severe Pain Rosuvastatin Calcium 10 mg 05/28/22 21:00 05/29/22 19:48 Rosuvastatin Calcium 10 Mg Tab PO 06/27/22 20:59 10 mg HS GALEN Administration Sertraline HCl 150 mg 05/29/22 09:00 05/29/22 08:27 Sertraline Hcl 50 Mg Tablet PO 06/28/22 08:59 150 mg QAM GALEN Administration NPO Date Last Intake of Fluids: 05/29/22 Time Last Intake of Fluids: 23:30 Last Intake of Fluids Comment: ice chips Date Last Intake of Solids: 05/27/22 Past Medical History Medical History Bladder prolapse CKD (chronic kidney disease) stage 4, GFR 15-29 ml/min Folic acid deficiency HFrEF (heart failure with reduced ejection fraction) History of CVA (cerebrovascular accident) Hyperlipidemia Major depressive disorder Mild cognitive impairment Osteoporosis Paroxysmal atrial fibrillation Presence of combination internal cardiac defibrillator (ICD) and pacemaker Exercise / Class Metabolic Activity III < 4 Walking/Shop/Light housework (says can climb a floor up "if I take my t idalmis") Past Family History Family History Other Family history non-contributory Past Surgical History Surgical History History of kyphoplasty Past Anesthesia History No Hx of Anesthesia Complications and No Family Hx of Anesthesia Complications History of PONV No Hx of PONV and No Hx of Motion Sickness Social History Smoking Status: Never smoker Do You Dip or Chew Tobacco: No Hx Alcohol Use: No Hx Substance Use: No Review of Systems ROS Unobtainable: All systems reviewed & are unremarkable except as noted in HPI & below Constitutional: as per Subjective / HPI Eyes: as per Subjective / HPI Ear, Nose, Mouth, Throat: as per Subjective / HPI Respiratory: as per Subjective / HPI Cardiovascular: as per Subjective / HPI; no dyspnea, no dyspnea on exertion and no orthopnea Additional Comments: denies cardiac sx, c/o "fatigue" with physical exertion. Defibrillator x8 y, no discharges Gastrointestinal: as per Subjective / HPI Genitourinary (Female): as per Subjective / HPI Musculoskeletal: as per Subjective / HPI Integumentary: as per Subjective / HPI Neurologic: as per Subjective / HPI h/o CVA, no residual weakness Psychiatric: as per Subjective / HPI Endocrine: as per Subjective / HPI Hematologic / Lymphatic: as per Subjective / HPI Allergy / Immunological: as per Subjective / HPI Physical Exam Vital Signs Last Vital Signs Temp 37.2 C 05/30/22 09:07 Pulse 69 05/30/22 09:07 Resp 18 05/30/22 09:07 BP 119/58 L 05/30/22 09:07 Pulse Ox 96 05/30/22 09:07 Constitutional WD/WN, vitals as above + thin; not lethargic Eyes PERRL, conjunctivae normal, anicteric sclerae ENMT external ear and nose normal, oropharynx normal Mouth: no loose teeth Thyromental Distance: > or= 3.5 Finger Breadths Mallampati Class: II Throat: uvula midline Neck trachea midline, no thyromegaly normal visual inspection and trachea midline Respiratory normal respiratory effort, lungs clear to auscultation normal respiratory effort; no cough Auscultation: + crackles (Bibasilar); no rhonchi and no wheezes Cardiovascular RRR, no murmur, no edema Rate/Rhythm: regular rate Heart Sounds: + murmur (2/6 SM) Vessels: no JVD Extremities: no edema Chest (Breasts) Chest: normal inspection of chest and + pacemaker Gastrointestinal (Abdomen) normal bowel sounds, soft, nontender, no hepatosplenomegaly Inspection/Auscultation: abdomen normal to inspection and normal bowel sounds; abdomen not distended Percussion/Palpation: + abdomen tender (mild +TTP in LLQ without guarding or rebound) and abdomen soft; no guarding Musculoskeletal Extremities: extremities normal to inspection; no cyanosis and no clubbing Skin no rashes, warm and dry Neurologic PERRL, EOMI, accommodation nl, no face palsy, no dysarthria moves all extremities and awake; no focal motor deficits Cranial Nerves: tongue midline and symmetric palate elevation Psychiatric A+Ox3, euthymic affect Orientation: alert and oriented x 3 Apperance: appropriately dressed and appropriately groomed Eye Contact: good eye contact Speech: normal rate/rhythm/volume of speech Affect: euthymic affect Judgement: good judgement Lymphatic no lymphedema Testing Laboratory Results 05/29/22 06:54 05/29/22 06:54 Urine Color Yellow 05/28/22 17:06 Urine Appearance Clear (Clear) 05/28/22 17:06 Urine pH 5.0 (4.5-7.5) 05/28/22 17:06 Ur Specific [place] 1.017 (1.000-1.030) 05/28/22 17:06 Urine Protein Negative (Negative) 05/28/22 17:06 Urine Glucose (UA) Negative (Negative) 05/28/22 17:06 Urine Ketones Negative (Negative) 05/28/22 17:06 Urine Nitrite Negative (Negative) 05/28/22 17:06 Ur Leukocyte Esterase Negative (Negative) 05/28/22 17:06 Blood Type O Positive 05/28/22 14:15 Antibody Screen NEGATIVE 05/28/22 14:15 Echocardiogram EF: 10-15% LV Function: dysfunctional Valvular Disease: + MR mod-severe MR, mod TR; PASP 55mmHg
[2022-05-30] MEDS ORDERED: PROPOFOL IV EMULSION 10 MG/ML 20 ML VIAL IV ONE (09:41)
[2022-05-30] MEDS ORDERED: LIDOCAINE 2% MPF LOCAL 5 ML VIAL INFIL ONE (09:41)
[2022-05-30] MEDS ORDERED: KETAMINE 50 MG/5 ML SYRINGE ONE (09:41)
--- NOTE | 2022-05-30 10:07 | GI REPORT ---
Patient Name: Yvonne Hardin Procedure Date: 05/30/2022 9:29 AM Date of : 1945 Admit Type: Inpatient Age: 76 Gender: Female Attending MD: Marielle Vincent DO Procedure: Upper GI endoscopy Providers: Marielle Vincent DO Referring MD: Nancy Flores Md Indications: Hematemesis, Melena Medicines: Monitored Anesthesia Care Complications: No immediate complications. Estimated blood loss: Minimal. Estimated Blood Loss: Estimated blood loss was minimal. Procedure: Pre-Anesthesia Assessment: - Prior to the procedure, a History and Physical was performed, and patient medications, allergies and sensitivities were reviewed. The patient's tolerance of previous anesthesia was reviewed. - The risks and benefits of the procedure and the sedation options and risks were discussed with the patient. All questions were answered and informed consent was obtained. - Patient identification and proposed procedure were verified prior to the procedure by the physician, the nurse and the spring former. The procedure was verified in the procedure room. - Pre-procedure physical examination revealed no contraindications to sedation. - ASA Grade Assessment: IV - A patient with severe systemic disease that is a constant threat to life. - After reviewing the risks and benefits, the patient was deemed in satisfactory condition to undergo the procedure. - The anesthesia plan was to use monitored anesthesia care (MAC). - Immediately prior to administration of medications, the patient was re-assessed for adequacy to receive sedatives. - The heart rate, respiratory rate, oxygen saturations, blood pressure, adequacy of pulmonary ventilation, and response to care were monitored throughout the procedure. - The physical status of the patient was re-assessed after the procedure. After obtaining informed consent, the endoscope was passed under direct vision. Throughout the procedure, the patient's blood pressure, pulse, and oxygen saturations were monitored continuously. The Endoscope was introduced through the mouth, and advanced to the third part of duodenum. The upper GI endoscopy was accomplished without difficulty. The patient tolerated the procedure well. Findings: The examined esophagus was normal. The Z-line was regular and was found 37 cm from the incisors. One non-obstructing non-bleeding cratered gastric ulcer of mild severity with no stigmata of bleeding was found on the greater curvature of the gastric body. The lesion was 7 mm in largest dimension. The examined duodenum was normal. Impression: - Normal esophagus. - Z-line regular, 37 cm from the incisors. - Non-obstructing non-bleeding gastric ulcer with no stigmata of bleeding. NSAID induced etiology. - Normal examined duodenum. - No specimens collected. Recommendation: - [facility]. - Use Protonix (pantoprazole) 40 mg PO daily for 6 weeks the reduce to 20 mg per day. - Consider use of a iron supplement for 6 to 8 weeks after discharge - Avoid use of NSAIDS for 6 to 8 weeks. - Given comorbidities, would not recommend a surveillance endoscopy Marielle Vincent D.O. Marielle Vincent, 05/30/2022 10:06:43 AM This report has been signed electronically. Note Initiated On: 05/30/2022 9:29 AM Number of Addenda: 0 I attest to the content of the Intraoperative Record and orders documented therein, exceptions below {[id number]}
--- NOTE | 2022-05-30 10:08 | Communication Note ---
Date of Service: May 30, 2022 The patient underwent upper endoscopy today given her history of hematemesis and melena. The patient was found to have evidence of a clean-based ulcer along the greater curvature of the gastric body. This is the likely source of her bleeding. Recommendations Advance diet as tolerated Avoid NSAIDs for 6 to 8 weeks Protonix 40 mg daily for 6 weeks then reduce to 20 mg daily thereafter Consider use of an iron supplement for 6 to 8 weeks upon discharge Given comorbid conditions would not recommend a surveillance upper endoscopy Please call with any questions or concerns, GI to sign off
[2022-05-30] MEDS: IRON SUCROSE 300 MG in SODIUM CHLORIDE 0.9% 250 ML IV SCH (11:06)
--- NOTE | 2022-05-30 12:42 | Cardiology Progress Note ---
Date of Service May 30, 2022 Assessment & Plan (1) GI bleed: (2) Preoperative cardiovascular examination: (3) HFrEF (heart failure with reduced ejection fraction): (4) Presence of combination internal cardiac defibrillator (ICD) and pacemaker: (5) CKD (chronic kidney disease) stage 4, GFR 15-29 ml/min: Plan: Patient with known stage IV chronic kidney disease, baseline creatinine in the range of 1.8-2.3 mg/dL, baseline GFR 20-27 mL/min/m. She has a longstanding history of chronic heart failure with reduced ejection fraction due to non ischemic cardiomyopathy. Hemoglobin currently relatively stable at 8.7 , 05/29/2022. Patient well compensated from a cardiac perspective, with no evidence of volume overload on exam. EGD performed 05/30/2022 revealed a normal obstructing nonbleeding gastric ulcer. Echocardiogram revealed severe dilatation of the left ventricle, with severe global left ventricular hypokinesis, LV ejection fraction in the range of 15 to 20%. Significant trabeculations were noted in the left ventricle, with no evidence of LV mural thrombus. Moderate to severe mitral regurgitation present, etiology of the regurgitation is dilated cardiomyopathy. Grade 2 diastolic dysfunction noted. Pulmonary artery systolic pressure is elevatedto a mild to moderate degree, PASP 57 mmHg. Based on the history obtained from interviewing patient, her family, and discussion with her primary web marketing intern, patient had a stroke event 3 years ago, and was placed on Eliquis due to concerns of LV mural thrombus. Currently echocardiogram without thrombus, and will therefore discontinue Eliquis at least for the short-term. Resume aspirin in 48 hours, recommend follow-up with her primary web marketing intern regards to the benefits and risks of future fibrillation and her past history of stroke. Agree with administration of IV iron while in hospital which is currently infusing. PPI therapy as recommended by GI. Admission and Anticipated Discharge Date Admission Date: May 28, 2022 Subjective Pt seen in cardiology follow up of her history of chronic heart failure due to nonischemic cardiomyopathy. Underwent EGD this am and tolerated the procedure from a cardiac perspective. Physical Exam Constitutional: WD/WN, vitals as above Respiratory: normal respiratory effort, lungs clear to auscultation Cardiovascular: Rate/Rhythm: regular rate Heart Sounds: + murmur (2/6 SM) Extremities: no edema Gastrointestinal (Abdomen): normal bowel sounds, soft, nontender, no hepatos plenomegaly Neurologic: PERRL, EOMI, accommodation nl, no face palsy, no dysarthria Results & Data ([facility]) Vital Signs (Past 12 Hours) Vital Signs Temp Pulse Resp BP BP Pulse Ox 05/30/22 10:29 76 18 118/55 L 96 05/30/22 10:14 75 18 127/54 L 96 05/30/22 09:59 78 18 125/63 97 05/30/22 09:07 37.2 C 69 18 119/58 L 96 05/30/22 07:28 36.6 C 72 12 112/50 L 96 05/30/22 03:26 36.8 C 78 18 125/54 L 94 Laboratory Results Intake and Output 05/29/22 05/30/22 05/30/22 22:59 06:59 14:59 Intake Total 505.798 / 1384.131 412.833 / 1384.131 300 / 300 Output Total 200 / 650 450 / 650 Balance 305.798 / 734.131 -37.167 / 734.131 300 / 300 Intake: IV 405.798 / 1284.131 412.833 / 1284.131 100 / 100 Octreotide Acetate 500 mcg In 97.465 / 298.465 100.5 / 298.465 Dextrose 5% 100 ml @ 50 MCG/HR 10.05 mls/hr IV .Q10H [facility] Rx#: [id number] PANTOprazole 40 mg In Dextrose 193.333 / 490.666 197.333 / 490.666 100 / 100 5% 100 ml @ 8 MG/HR 20 mls/hr IV Q5H [facility] Rx#:[id number] Piperacillin/Tazobactam 3.375 115 / 230 115 / 230 gm In Dextrose 5% 100 ml @ 28. 75 mls/hr IV Q12H [facility] Rx#: [id number] IV Perioperative 200 / 200 Oral 100 / 100 0 / 0 Output: Urine Amount (Catheter) 200 / 650 450 / 650 Hernandez/Indwelling 200 / 650 450 / 650 Other: Weight 48.1 kg 48.1 kg Weight Measurement Method Built in [facility] Patient Weight 05/31/22 06:59 Weight 48.1 kg
[2022-05-30] MEDS: PANTOprazole 40 MG TAB PO SCH (12:53)
[2022-05-30] MEDS: DONEPEZIL HCL 10 MG TAB PO SCH (12:53)
[2022-05-30] MEDS: FUROSEMIDE 40 MG TAB PO SCH (12:53)
[2022-05-30] MEDS: SERTRALINE HCL 50 MG TABLET PO SCH (12:53)
[2022-05-30 13:06] LABS: Hemoglobin 7.9 g/dl (12.0-16.0); Mean Corpuscular Hemoglobin 32.6 pg (25.0-34.0); Mean Corpuscular Hgb Conc 31.6 g/dL (32.0-36.0); Mean Corpuscular Volume 103.3 fL (80.0-100.0); Mean Platelet Volume 11.2 fL (9.4-12.3); Nucleated RBC # (auto) 0.02 K/uL (0-0); Nucleated RBC % (auto) 0.4 %; Platelet Count 135 K/uL (130-400); RDW Coefficient of Variation 15.8 % (11.5-14.5); RDW Standard Deviation 60.1 fL (36.4-46.3); Red Blood Count 2.42 M/uL (3.93-5.22); White Blood Count 5.58 K/ul (4.8-10.8)
[2022-05-30 13:29] LABS: Calcium 7.6 mg/dl (8.5-10.1); Est GFR (African American) 29.3 ml/min; Est GFR (Non-African American) 25.3 ml/min
--- NOTE | 2022-05-30 13:32 | Anesthesiology Progress Note ---
Date of Service May 30, 2022 Anesthesia Post Procedure Vital Signs Vital Signs: Temp Pulse Resp BP BP Pulse Ox 05/30/22 10:29 76 18 118/55 L 96 05/30/22 10:14 75 18 127/54 L 96 05/30/22 09:59 78 18 125/63 97 05/30/22 09:07 37.2 C 69 18 119/58 L 96 05/30/22 07:28 36.6 C 72 12 112/50 L 96 05/30/22 03:26 36.8 C 78 18 125/54 L 94 05/29/22 23:00 36.9 C 73 18 124/58 L 92 05/29/22 19:31 36.8 C 83 18 116/67 92 05/29/22 16:03 36.4 C L 68 12 119/58 L 98 Transfer of Care Handoff Completed per policy Notes Mental Status: alert / awake / arousable and participated in evaluation Patient Amnestic to Procedure: Yes Nausea / Vomiting: adequately controlled Pain: adequately controlled Airway Patency, RR, SpO2: stable & adequate BP & HR: stable & adequate Hydration State: stable & adequate Anesthetic Complications: no major complications apparent and Pt Satisfied with anesthetic care
--- NOTE | 2022-05-30 14:34 | Hospitalist Progress Note ---
Date of Service May 30, 2022 Assessment & Plan (1) GI bleed: Plan: Anemia Presented with hematemesis, melena in the setting of taking aspirin and Eliquis Upper GI [facility] Hgb on admission 9.2, then dropped to 8.3. Hgb today 8.7 ( unknown baseline hgb ) No further episode of hematemesis or bloody bowel movement EGD showed clean based ulcer, likely source of bleed GI recommends pantoprazole 40mg for 6 weeks then reduce to 20mg daily thereafter Avoid NSAIDS for 6 to 8 weeks. Patient reports she takes motrin as needed. Counseled her to avoid this for now Got IV iron. Will dc on po iron for 6-8 weeks per GI Discussed with GI. Can resume ASA 81mg and start carafate 1g qid x 2 weeks Monitor Hb No fever, leukocytosis Discontinue zosyn for now and monitor HFrEF (heart failure with reduced ejection fraction): Patient has known chronic HFrEF with EF 10-15% Presence of combination internal cardiac defibrillator (ICD) and pacemaker Follows with Dr. Gongora in the [place] area Discussed with Supervising Floorperson who confirmed that based on his conversation with Patient's primary Supervising Floorperson, patient was on eliquis for concern for LV thrombus, not Afib TTE today showed EF of 15-20%, mod to severe MR, no LV thrombus, GII DD Recommend discontinue eliquis for now. Patient to follow up with her Primary Supervising Floorperson Continue Lasix 40mg daily Continue monitor I/O Continue monitor BMP Urinary urgency UA negative for UTI She requested keeping randhawa for today. Discontinue randhawa tomorrow AM CKD (chronic kidney disease) stage 4, GFR 15-29 ml/min: Creatinine 1.87 today , unknown baseline Continue to avoid nephrotoxic agents Continue monitor BMP Folic acid deficiency: Continue home folate History of CVA (cerebrovascular accident): Contineu to hold aspirin and Eliquis due to severe GI bleed No focal neuro deficit Major depressive disorder: Continue home sertraline stable Hyperlipidemia Continue home Crestor Mild cognitive impairment: Continue home donepezil Follows with neurology in [place] Osteoporosis: No acute issues received Prolia q6 mo DVT prophylaxis-SCDs due to GI bleed Disposition Continue monitor in PCU DNR/DNI Full code Admission and Anticipated Discharge Date Admission Date: May 28, 2022 Subjective 76-year-old woman with chronic systolic heart failure with EF of 10 to 15%, CKD 4, history of LV thrombus on Eliquis and other medical problems who had presented initially to [facility] for GI bleed and acute blood loss anemia and was transferred to [facility] for endoscopic procedures. Being managed for acute blood loss anemia. Patient seen and examined. Patient had EGD this morning which showed clean-based ulcer along the greater curvature of the gastric body which is likely source of bleeding. No active bleeding. Patient currently denies any nausea, vomiting. Reports some abdominal discomfort. Denies any headache, dizziness Denies shortness of breath, cough or chest pain. Denies fevers, chills Review of Systems Review of Systems: All systems reviewed & are unremarkable except as noted in Subjective Physical Exam Constitutional: + well hydrated; no acute distress Eyes: PERRL, conjunctivae normal, anicteric sclerae ENMT: external ear and nose normal, oropharynx normal Respiratory: normal respiratory effort, lungs clear to auscultation Cardiovascular: Rate/Rhythm: regular rate and regular rhythm Heart Sounds: + murmur S1 S2 Gastrointestinal (Abdomen): normal bowel sounds, soft, nontender, no hepatosplenomegaly Musculoskeletal: No pedal edema Neurologic: PERRL, EOMI, accommodation nl, no face palsy, no dysarthria Psychiatric: A+Ox3, euthymic affect Genitourinary: Randhawa in situ Results & Data Results & Data ([facility]) Vital Signs (Past 12 Hours) Vital Signs Temp Pulse Resp BP BP Pulse Ox 05/30/22 10:29 76 18 118/55 L 96 05/30/22 10:14 75 18 127/54 L 96 05/30/22 09:59 78 18 125/63 97 05/30/22 09:07 37.2 C 69 18 119/58 L 96 05/30/22 07:28 36.6 C 72 12 112/50 L 96 05/30/22 03:26 36.8 C 78 18 125/54 L 94 Laboratory Results Abnormal lab results 05/30/22 05/30/22 Range/Units 12:26 12:26 RBC 2.42 L (3.93-5.22) M/uL Hgb 7.9 L (12.0-16.0) g/dl Hct 25.0 L (34.1-44.9) % MCV 103.3 H (80.0-100.0) fL MCHC 31.6 L (32.0-36.0) g/dL RDW Std Deviation 60.1 H (36.4-46.3) fL RDW Coeff of Marina 15.8 H (11.5-14.5) % Absolute Nucleated RBC 0.02 H (0-0) K/uL BUN 58 H D (6-23) mg/dl Creatinine 1.87 H (0.6-1.2) mg/dl BUN/Creatinine Ratio 31.0 H (10-20) Glucose 108 H (70-99(Fasting)) mg/dl Calcium 7.6 L (8.5-10.1) mg/dl
[2022-05-30] MEDS: SUCRALFATE 1 GM/10 ML UDC PO SCH ×2 (17:01→21:00)
[2022-05-30] MEDS: FOLIC ACID 1 MG TAB PO SCH (21:00)
[2022-05-30] MEDS: ROSUVASTATIN CALCIUM 10 MG TAB PO SCH (21:00)
[2022-05-31 06:25] LABS: Hematocrit (blood only) 26.4 % (34.1-44.9); Hemoglobin 8.6 g/dl (12.0-16.0); Mean Corpuscular Hgb Conc 32.6 g/dL (32.0-36.0); Mean Corpuscular Volume 101.1 fL (80.0-100.0); Mean Platelet Volume 11.2 fL (9.4-12.3); Platelet Count 149 K/uL (130-400); RDW Coefficient of Variation 15.6 % (11.5-14.5); Red Blood Count 2.61 M/uL (3.93-5.22); White Blood Count 5.49 K/ul (4.8-10.8)
[2022-05-31 06:36] LABS: BUN Creatinine Ratio 29.9 (10-20); Calcium 7.6 mg/dl (8.5-10.1); Creatinine Clr Calc Pharmacy 17.2 ml/min; Est GFR (Non-African American) 27.6 ml/min; Magnesium 2.3 mg/dl (1.7-2.4); Phosphorus 3.5 mg/dl (2.5-4.9); Potassium 3.9 mmol/L (3.5-5.1)
[2022-05-31] MEDS: OCTREOTIDE ACETATE 500 MCG in DEXTROSE 5% 100 ML IV SCH (07:55)
[2022-05-31] MEDS: DONEPEZIL HCL 10 MG TAB PO SCH (08:44)
[2022-05-31] MEDS: SERTRALINE HCL 50 MG TABLET PO SCH (08:44)
[2022-05-31] MEDS: FUROSEMIDE 40 MG TAB PO SCH (08:44)
[2022-05-31] MEDS: SUCRALFATE 1 GM/10 ML UDC PO SCH ×2 (08:45→14:07)
[2022-05-31] MEDS: PANTOprazole 40 MG TAB PO SCH (08:45)
[2022-05-31] MEDS ORDERED: ASPIRIN 81 MG ECTAB PO SCH (09:00)
--- NOTE | 2022-05-31 13:22 | Discharge Summary ---
Date of Service May 31, 2022 Admission HPI Per Admitting Provider This patient is a 76-year-old female with a history of chronic systolic CHF with EF 10-15%, CKD stage IV, lone atrial fibrillation on Eliquis, TIA, folic acid deficiency, hyperlipidemia, depression, who presents as a direct transfer from [facility] for GI bleed and acute blood loss anemia. On 05/27, she had 2 episodes of black tarry stools around lunchtime and had lower abdominal pressure sensation. Then after dinner around 6:30 PM, she had an episode of dark black emesis. She went to the outside hospital via EMS and was found to have a hemoglobin initially of 9.2 but then dropped to 8.1 through the night. She had a CT of the abdomen/pelvis without contrast which showed possible but cannot exclude low-grade diverticulitis. She was hemodynamically stable and transferred to [facility] due to need to see a coordinator of rehabilitation services. She was started on Protonix and octreotide drips and given ceftriaxone and metronidazole x1 dose at the outside hospital. She was also given IV fluids ove rnight. Her lipase and amylase were mildly elevated there and her LFTs were normal, WBC count normal, COVID-19 test negative. She has never had an EGD or colonoscopy in her lifetime. She does describe frequent heartburn for which she takes Pepto-Bismol occasionally as well as peppermint lifesavers. When she arrived at [facility], almost 12 hours had gone by without any further hematemesis or melena. She was having 5/10 in severity lower abdominal pressure. Also feels like she is urinating more frequently than usual and has a history of recurrent UTI with a pessary in place. No fevers or chills. No lightheadedness or headache, no chest pain or shortness of breath, no joint pains or rashes. Admission Exam Per Admitting Provider Constitutional: + thin; not lethargic Eyes: PERRL, conjunctivae normal, anicteric sclerae ENMT: external ear and nose normal, oropharynx normal Neck: trachea midline, no thyromegaly Respiratory: normal respiratory effort; no cough Auscultation: + crackles (Bibasilar); no rhonchi and no wheezes Cardiovascular: RRR, no murmur, no edema Chest (Breasts): Chest: normal inspection of chest Gastrointestinal (Abdomen): Inspection/Auscultation: abdomen normal to inspection and normal bowel sounds; abdomen not distended Percussion/Palpation: + abdomen tender (mild +TTP in LLQ without guarding or rebound) and abdomen soft Musculoskeletal: Extremities: extremities normal to inspection; no cyanosis and no clubbing Skin: no rashes, warm and dry Neurologic: moves all extremities and awake; no focal motor deficits Psychiatric: A+Ox3, euthymic affect Lymphatic: no lymphedema Principal Diagnosis Upper GI bleed Gastric ulcer Acute blood loss anemia Discharge Exam Constitutional + well hydrated; no acute distress Eyes PERRL, conjunctivae normal, anicteric sclerae ENMT external ear and nose normal, oropharynx normal Respiratory normal respiratory effort, lungs clear to auscultation Cardiovascular Rate/Rhythm: regular rate and regular rhythm Heart Sounds: + murmur Gastrointestinal (Abdomen) normal bowel sounds, soft, nontender, no hepatosplenomegaly Musculoskeletal No pedal edema Neurologic PERRL, EOMI, accommodation nl, no face palsy, no dysarthria Psychiatric A+Ox3, euthymic affect Discharge Data Allergies Allergy/AdvReac Type Severity Reaction Status Date / Time simvastatin Allergy Intermediate Rash Verified 05/28/22 14:09 sulfamethoxazole Allergy Intermediate Rash Verified 05/28/22 14:09 [From Bactrim] trimethoprim [From Bactrim] Allergy Intermediate Rash Verified 05/28/22 14:09 Consultations 05/28/22 13:11 Consult Gastroenterology Routine 05/29/22 11:24 Consult Anesthesiology Routine 05/29/22 11:56 Consult Cardiology Routine Procedures Performed Operation Date: 05/29/22 17:30 <No data on this case meets the specified criteria> Operation Date: 05/30/22 16:00 Actual Procedures p Esophagogastroduodenoscopy - Marielle Vincent DO The examined esophagus was normal. The Z-line was regular and was found 37 cm from the incisors. One non-obstructing non-bleeding cratered gastric ulcer of mild severity with no stigmata of bleeding was found on the greater curvature of the gastric body. The lesion was 7 mm in largest dimension. The examined duodenum was normal. Impression: - Normal esophagus. - Z-line regular, 37 cm from the incisors. - Non-obstructing non-bleeding gastric ulcer with no stigmata of bleeding. NSAID induced etiology. - Normal examined duodenum. - No specimens collected. Recommendation: - [facility]. - Use Protonix (pantoprazole) 40 mg PO daily for 6 weeks the reduce to 20 mg per day. - Consider use of a iron supplement for 6 to 8 weeks after discharge - Avoid use of NSAIDS for 6 to 8 weeks. - Given comorbidities, would not recommend a surveillance endoscopy Hospital Course (1) GI bleed: Anemia Presented with hematemesis, melena in the setting of taking aspirin and Eliquis Upper GI [facility] Hgb on admission 9.2, then dropped to 8.3. (Per [facility] records, Hb was 11.4 on 10/09/22) No further episode of hematemesis or bloody bowel movement EGD showed clean based ulcer, likely source of bleed GI recommends pantoprazole 40mg for 6 weeks then reduce to 20mg daily thereafter Avoid NSAIDS for 6 to 8 weeks. Patient reports she takes motrin as needed. Counseled her to avoid this for now Got IV iron inpatient Discharged on po ferrous sulphate for 6 weeks per GI Patient to continue ASA 81mg Started on carafate 1g qid x 2 weeks PCP to monitor CBC HFrEF (heart failure with reduced ejection fraction): Patient has known chronic HFrEF with EF 10-15% Presence of combination internal cardiac defibrillator (ICD) and pacemaker Follows with Dr. Gongora in the [facility] area Was seen by Prateek Round Kiln Drawer while inpatient who confirmed with Patient's primary [employer] Drawer, patient was on eliquis for concern for LV thrombus, not Afib TTE today showed EF of 15-20%, mod to severe MR, no LV thrombus, GII DD Eliquis was discontinued until follow up with primary [employer] Drawer Continue Lasix 40mg daily CKD (chronic kidney disease) stage 4, GFR 15-29 ml/min: Creatinine 1.74. Per [facility] records, Baseline Cr is 1.8 Continue to avoid nephrotoxic agents Folic acid deficiency: Continue home folate History of CVA (cerebrovascular accident): Continue Aspirin Eliquis was discontinued as above No focal neuro deficit Major depressive disorder: Continue home sertraline stable Hyperlipidemia Continue home Crestor Mild cognitive impairment: Continue home donepezil Follows with neurology in [place] Osteoporosis: No acute issues receive Prolia q6 mo I called patient's son and daughter and went over medication changes and recommendations Patient declined any SNF placement New meds sent to family's preferred pharm. I also called the pharm and confirmed meds Discussed with CM to set up HH/Home PT Total Time Total Time Spent Total Time Spent (In Minutes): 50 Total Time Includes: Examination of the Patient, Discharge Planning, Medication Reconciliation and Other Discharge Plan Discharge Items Patient Disposition: Home - Home Health Services Reason For Visit: UPPER GI BLEED Discharge Diagnosis: Upper GI bleed Gastric ulcer Acute blood loss anemia Activity: Resume your previous activity Non-emergency contact: Primary Care Provider Call non-emergency contact if: you have any medication questions and your symptoms worsen Follow-up/Referrals: Sunday Mckeon MD [Primary Care Provider] - (Date & Time 06/06/2022 1:40 PM Provider Amberly Velez DO Department Family [facility] ) Deepthi Lopes V. [Physician] - (Date & Time 06/05/2022 4:00 PM Provider Deepthi Lopes MD Department Gynecology/Obstetrics [facility] ) Diet: Heart Healthy Addtl Attending Provider Instructions: Mrs Hardin You went to [facility] due to bloody vomiting and dark stools. You were transferred to [facility] for evaluation. You were noted to have low blood level (hemoglobin). You were evaluated by Gastroenterology and had an upper endoscopy which showed stomach ulcer likely source of your bleeding. Your bleeding currently stopped and your blood count has remained stable. You are being discharged on some new medications: -Tab pantoprazole 40mg daily for 6 weeks after which your Primary doctor will reduce it to 20mg daily -Sucralfate 1g 4 times a day for 2 weeks -Iron tab once daily for 6 weeks. Also know that iron tab can cause dark stool and also cause constipation. You can use senna-docusate as needed for constipation PLEASE AVOID ALL NSAIDS (NON STEROIDAL ANTI INFLAMMATORY DRUGS) SUCH IBUPROFEN, ADVIL, MOTRIN, ALLEVE, NAPROXEN, ETC You were also seen by the Round Kiln Drawer who also contacted your Round Kiln Drawer. PLEASE STOP TAKING ELIQUIS/APIXABAN until follow up with your Primary Doctor. You can continue taking aspirin 81mg. Please ensure follow up with your Primary Doctor It was a pleasure taking care of you. Pending Studies at Discharge: No Stand-Alone Forms: [facility], Smoking Cessation Medications and DC Order Prescriptions: New pantoprazole 40 mg Tablet,Delayed Release (Dr/Ec) 40 mg PO QAM 42 Days Qty: 42 RF: 0 sucralfate 1 gram tablet 1 g PO Q6H 14 Days Qty: 56 RF: 0 ferrous sulfate 324 mg (65 mg iron) tablet,delayed release (DR/EC) 324 mg PO DAILY 42 Days Qty: 42 RF: 0 sennosides-docusate sodium 8.6-50 mg tablet 1 tab-cap PO DAILY PRN (Reason: constipation) Qty: 30 RF: 0 Continued furosemide 40 mg tablet 40 mg PO DAILY RF: 0 donepezil 10 mg tablet 10 mg PO DAILY RF: 0 sertraline 100 mg tablet 150 mg PO QAM RF: 0 folic acid 1 mg Tablet 1 mg PO HS RF: 0 aspirin 81 mg Tablet 81 mg PO DAILY RF: 0 vitamin E 100 unit Tablet 100 unit PO HS RF: 0 rosuvastatin 10 mg tablet 10 mg PO HS RF: 0 Discontinued Eliquis 2.5 mg tablet 2.5 mg PO BID RF: 0 Discharge Orders: Discharge Order (Routine); Ordered 05/31/22 Ordered By: Re Gonsales Admission Data Admit Date/Time: 05/28/22 13:36 Attending Provider: Re Gonsales I. Admit Provider: Anderson Joshi Primary Care Provider: Sunday Mkceon Other Providers: Kevyn Baeza ; Felisa Silveira ; Alyssa Quinones ; Allison Madrid ; Chayo Carr ; John Smith ; Jermaine Mabry ; Robin Nolan ; Jairon Elliott ; Ana Elliott ; John Whiteside ; Shelley Paul ; Guero Almaguer ; Oral Whatley ; Boris Denson ; Everett Harrell ; Radha Grande ; Eliseo Gaston ; Maria Guadalupe Ball ; Elise Gaston ; Migue Hoover ; Karie Lovell ; Garry Ramos ; Juhi Gage ; Debi Garduno ; Cathy Pettit ; Jameel John ; Maria Antonia Moses ; Celeste Gaffney ; Odette Denny ; Daksha Morrison ; Nnamdi Morrison V ; Wicho Henderson ; Alyssa Fermin ; Berry Jones ; Tawnya Angel ; Nnamdi Nava ; Ryne Grande ; Michael Trejo ; Deloris Garcia ; Melvi Welch ; Nnamdi Cota ; Victor M Ziegler ; Bib Harrell ; Mariana Matamoros ; Jourdan Contreras ; Mi Martines ; Tyron Reid ; Jourdan Venegas ; John Lemons Jr ; Evie Pavon ; Mattie Meeks ; Tanisha Starr ; Jameel Watson ; Chayo Ruiz ; Jairon Youngblood ; Vishnu Cameron I. ; Inge Aly ; Victor M Mckay ; Chris Sen ; [facility] Other Interventions: Discharge Summary Assessment (RN) Last Done: 05/31/22 13:29
== END 2022-05-31 16:54 | disposition home health service (06) | DRG 378 ==
LOC: SUATTDRO 13:36 → 2E 13:36 → INTOOBSV 13:36